=== PATIENT | female | born 1965 | race Caucasian/White ===

== ENCOUNTER 2022-09-11 12:48 | Emergency (ER) | payer OTHER ==
[~2022-09-11] VITALS: Ht 162.6 cm; Wt 83.9 kg
[2022-09-11 12:55] VITALS: BP 116/82
--- NOTE | 2022-09-11 13:00 | NUR ---
BIBA BLS TO ER BED 12
[2022-09-11 15:10] LABS: BASOPHILS % (AUTO) 0.5 % (0.0-2.0); EOSINOPHILS # (AUTO) 0.1 K/uL (0-0.4); EOSINOPHILS % (AUTO) 1.6 % (0.0-4.0); HEMATOCRIT 34.7 % (36-48); LYMPHOCYTES # (AUTO) 0.8 K/uL (2.5-16.5); LYMPHOCYTES % (AUTO) 11.1 % (20.5-51.1); MEAN CORPUSCULAR HEMOGLOBIN 32 pg (27-31); MEAN CORPUSCULAR HGB CONC 35 g/dL (33-37); MEAN CORPUSCULAR VOLUME 92.3 fL (80-94); MONOCYTES # (AUTO) 0.5 K/uL (0.8-1.0); MONOCYTES % (AUTO) 6.6 % (1.7-9.3); NEUTROPHILS # (AUTO) 5.7 K/uL (1.8-7.7); NEUTROPHILS % (AUTO) 80.2 % (42.2-75.2); PLATELET COUNT (AUTO) 153 K/uL (140-450); RED BLOOD CELL COUNT(AUTO) 3.76 MIL/uL (4.20-5.40); RED CELL DISTRIBUTION WIDTH 14.7 % (11.6-13.7); WHITE BLOOD COUNT (AUTO) 7.1 K/uL (4.8-10.8)
[2022-09-11 15:40] LABS: ALBUMIN 3.6 g/dL (3.4-5.0); ANION GAP 15.3 (8-16); CARBON DIOXIDE 32.9 mmol/L (21-32); POTASSIUM 4.2 mmol/L (3.5-5.1); TOTAL BILIRUBIN 0.7 mg/dL (0.0-1.0)
[2022-09-11 15:43] LABS: CREATININE 7.7 mg/dL (0.6-1.3)
[2022-09-11 18:45] VITALS: BP 122/79
--- NOTE | 2022-09-11 18:46 | NUR ---
Patient discharged with v/s stable. Written and verbal after care instructions about nonspecific chest pain and esrd given and explained. Patient verbalized understanding. Wheel Chair Assisted with to lobby. All questions addressed prior to discharge. Advised to follow up with PMD.
== END 2022-09-11 18:45 | disposition home or self-care (01) ==
LOC: MED 12:48
DX: R07.9 Chest pain, unspecified (principal); N18.6 End stage renal disease; I10 Essential (primary) hypertension; E03.9 Hypothyroidism, unspecified; Z99.2 Dependence on renal dialysis; Z79.899 Other long term (current) drug therapy
CPT/HCPCS: 36415; 71045; 80053; 83880; 84484; 85025; 93005; 99285; Q0092